=== PATIENT | female | born 1995 | race African-American/Black ===

== ENCOUNTER 2018-05-04 17:29 | Emergency (ER) | payer MEDICAID ==
[~2018-05-04] VITALS: Ht 162.6 cm; Wt 67.4 kg
[2018-05-04 17:34] VITALS: BP 122/87
== END 2018-05-04 18:02 | disposition home or self-care (01) ==
LOC: ED 17:45
DX: J03.90 Acute tonsillitis, unspecified (principal)
CPT/HCPCS: 51702; 99283

== ENCOUNTER 2019-09-12 05:05 | Emergency (ER) | payer SELFPAY ==
[~2019-09-12] VITALS: Ht 162.6 cm; Wt 60.9 kg
[2019-09-12] MEDS ORDERED: SODIUM CHLORIDE FLUSH 10ML SYR IVF ONE (05:30)
[2019-09-12] MEDS ORDERED: ONDANSETRON 2MG/ML, 2ML IVPush ONE (05:30)
[2019-09-12] MEDS ORDERED: FAMOTIDINE 20 MG/2 ML IV ONE (05:30)
[2019-09-12] MEDS ORDERED: MORPHINE SULFATE 4 MG/ML, 1ML IVPush PRN (05:30)
[2019-09-12] MEDS ORDERED: ONDANSETRON 2MG/ML, 2ML ONE (06:24)
[2019-09-12] MEDS ORDERED: MORPHINE SULFATE 4 MG/ML, 1ML ONE (06:24)
[2019-09-12] MEDS ORDERED: FAMOTIDINE 20 MG/2 ML ONE (06:25)
[2019-09-12 06:27] LABS: BASOPHILS # (AUTO) 0.03 x10^3/uL (0-0.1); BASOPHILS % (AUTO) 1 % (0-1); EOSINOPHILS # (AUTO) 0.09 x10^3/uL (0-0.4); EOSINOPHILS % (AUTO) 2 % (1-7); LYMPHOCYTES # (AUTO) 2.24 x10^3/uL (1-3.4); LYMPHOCYTES % (AUTO) 41 % (22-44); MD NO; MEAN CORPUSCULAR HEMOGLOBIN 29.8 pg (27.0-34.8); MEAN CORPUSCULAR HGB CONC 33.6 g/dL (32.4-35.8); MEAN CORPUSCULAR VOLUME 88.8 fL (80-100); MEAN PLATELET VOLUME 8.6 fL (7.4-10.4); MONOCYTES % (AUTO) 7 % (2-9); NEUTROPHILS # (AUTO) 2.68 x10^3/uL (1.8-6.8); NEUTROPHILS % (AUTO) 49 % (42-75); PLATELET COUNT 289 x10^3/uL (130-400); RED BLOOD COUNT 4.59 x10^6/uL (3.82-5.3)
[2019-09-12 06:38] LABS: ALANINE AMINOTRANSFERASE 29 U/L (12-78); ALBUMIN 3.4 g/dL (3.4-5.0); ANION GAP 6 mmol/L (5-15); CALCIUM 9.3 mg/dL (8.5-10.1); CHLORIDE 107 mmol/L (98-107); CREATININE 1.11 mg/dL (0.55-1.02)
[2019-09-12 06:42] LABS: ALKALINE PHOSPHATASE 64 U/L (45-117); BILIRUBIN,TOTAL 0.4 mg/dL (0.2-1.0); TOTAL PROTEIN 7.2 g/dL (6.4-8.2)
[2019-09-12 06:50] LABS: MICROSCOPIC AUTO
[2019-09-12 06:51] LABS: CULTURE INDICATED? YES
--- NOTE | 2019-09-12 07:08 | NUR ---
Received bedside report from MARTINEZ Gomez. All questions answered. Pt resting on gurney connected to monitors. No needs expressed at this time. Pt states pain is a dull pressure now and "not as painful as it was". Call light within reach. Bedrails up for pt safety and preferance at this time.
[2019-09-12] MEDS ORDERED: PANTOPRAZOLE 40 MG IV ONE (07:26)
[2019-09-12] MEDS ORDERED: PANTOPRAZOLE 40 MG IV IVPush SCH (07:30)
[2019-09-12 07:32] VITALS: BP 107/72
--- NOTE | 2019-09-12 07:49 | NUR ---
Patient given discharge instructions and they have confirmed that they understand the instructions. Patient ambulatory with steady gait. Pt left with d/c paperwork, Rx, and all personal belongings. Pt states, "I am feeling better, I am glad it wasn't anything worse." NADN. No needs expressed.
== END 2019-09-12 07:51 | disposition home or self-care (01) ==
LOC: ED 07:40
DX: R10.13 Epigastric pain (principal)
CPT/HCPCS: 36415; 71045; 76700; 80053; 81001; 83690; 84703; 85025; 87086; 93005; 96374; 96375; 99285; C9113; J2270; J2405; J3490

== ENCOUNTER 2019-12-15 23:54 | Emergency (ER) | payer SELFPAY ==
[~2019-12-15] VITALS: Ht 162.6 cm; Wt 62.6 kg
--- NOTE | 2019-12-16 00:22 | NUR ---
Patient presents to ER c/o stabbing pelvic pain with nausea since last . Radiates to back. More frequent BM. Patient has a hx of unspecified growth on right ovary. No vag discharge or bleeding. Patient took ibuprofen today for the pain. Patient is in NAD. Respirations even and unlabored.
[2019-12-16] MEDS ORDERED: SODIUM CHLORIDE FLUSH 10ML SYR IVF ONE (00:30)
[2019-12-16] MEDS ORDERED: MORPHINE SULFATE 4 MG/ML, 1ML IVPush PRN (00:30)
[2019-12-16] MEDS ORDERED: ONDANSETRON 2MG/ML, 2ML ONE (00:30)
[2019-12-16] MEDS ORDERED: ONDANSETRON 2MG/ML, 2ML IVPush ONE (00:30)
[2019-12-16] MEDS ORDERED: MORPHINE SULFATE 4 MG/ML, 1ML ONE (00:30)
[2019-12-16 00:40] LABS: MICROSCOPIC AUTO
[2019-12-16 00:52] LABS: BASOPHILS # (AUTO) 0.05 x10^3/uL (0-0.1); BASOPHILS % (AUTO) 1 % (0-1); EOSINOPHILS # (AUTO) 0.05 x10^3/uL (0-0.4); EOSINOPHILS % (AUTO) 1 % (1-7); LYMPHOCYTES # (AUTO) 2.83 x10^3/uL (1-3.4); LYMPHOCYTES % (AUTO) 32 % (22-44); MD NO; MEAN CORPUSCULAR HEMOGLOBIN 29.9 pg (27.0-34.8); MEAN CORPUSCULAR HGB CONC 33.6 g/dL (32.4-35.8); MEAN CORPUSCULAR VOLUME 88.8 fL (80-100); MEAN PLATELET VOLUME 9.3 fL (7.4-10.4); MONOCYTES # (AUTO) 0.51 x10^3/uL (0.2-0.8); MONOCYTES % (AUTO) 6 % (2-9); NEUTROPHILS # (AUTO) 5.38 x10^3/uL (1.8-6.8); NEUTROPHILS % (AUTO) 61 % (42-75); PLATELET COUNT 298 x10^3/uL (130-400); RED BLOOD COUNT 5.09 x10^6/uL (3.82-5.3); RED CELL DISTRIBUTION WIDTH 13.6 % (9.6-15.2)
[2019-12-16 01:02] LABS: ALBUMIN 3.9 g/dL (3.4-5.0); ANION GAP 6 mmol/L (5-15); CALCIUM 8.8 mg/dL (8.5-10.1); CHLORIDE 107 mmol/L (98-107); CREATININE 1.24 mg/dL (0.55-1.02)
--- NOTE | 2019-12-16 01:34 | NUR ---
TASK RN: RN PRESENT FOR TANSVAGINAL US. PT TOLERATED WELL. CONTINUES TO REPORT MILD NAUSEA BUT IMPROVED PAIN AFER RX.
[2019-12-16 02:00] VITALS: BP 106/71
--- NOTE | 2019-12-16 02:09 | NUR ---
Patient reports decreased pain and nausea.
--- NOTE | 2019-12-16 02:53 | NUR ---
CT ordered after US result. Patient states she does not want the CT done. Patient wants to go home and get a copy of the US result.
== END 2019-12-16 00:59 | disposition home or self-care (01) ==
LOC: ED 12-16 00:58
DX: R10.32 Left lower quadrant pain (principal); R10.31 Right lower quadrant pain; R11.2 Nausea with vomiting, unspecified; R94.31 Abnormal electrocardiogram [ECG] [EKG]
CPT/HCPCS: 36415; 76830; 80048; 81001; 82040; 84703; 85025; 87086; 93005; 96374; 96375; 99285; J2270; J2405

== ENCOUNTER 2020-06-05 16:56 | Emergency (ER) | payer OTHER ==
[~2020-06-05] VITALS: Ht 162.6 cm; Wt 66.5 kg
--- NOTE | 2020-06-05 20:08 | NUR ---
pt to room from lobby
[2020-06-05 21:06] LABS: ALANINE AMINOTRANSFERASE 17 U/L (12-78); ALBUMIN 3.4 g/dL (3.4-5.0); ANION GAP 5 mmol/L (5-15); CALCIUM 8.1 mg/dL (8.5-10.1); CHLORIDE 110 mmol/L (98-107); CREATININE 0.93 mg/dL (0.55-1.02)
[2020-06-05 21:09] LABS: BASOPHILS % (AUTO) 1 % (0-1); EOSINOPHILS % (AUTO) 1 % (1-7); LYMPHOCYTES % (AUTO) 40 % (22-44); MEAN CORPUSCULAR HGB CONC 34.2 g/dL (32.4-35.8); MONOCYTES % (AUTO) 6 % (2-9); NEUTROPHILS % (AUTO) 53 % (42-75); PLATELET COUNT 298 x10^3/uL (130-400); RED BLOOD COUNT 4.38 x10^6/uL (3.82-5.3)
[2020-06-05 21:10] LABS: ALKALINE PHOSPHATASE 63 U/L (45-117); BILIRUBIN,TOTAL 0.5 mg/dL (0.2-1.0)
[2020-06-05 21:21] LABS: MD NO
[2020-06-05 22:02] VITALS: BP 107/75
== END 2020-06-05 22:10 | disposition home or self-care (01) ==
LOC: ED 21:18
DX: B34.9 Viral infection, unspecified (principal); Z20.828 Contact with and (suspected) exposure to other viral communicable diseases; R53.83 Other fatigue; R42 Dizziness and giddiness; R05 Cough; R07.9 Chest pain, unspecified; I49.1 Atrial premature depolarization
CPT/HCPCS: 71045; 80053; 84703; 85025; 87635; 93005; 99285

== ENCOUNTER 2020-08-15 17:35 | Emergency (ER) | payer OTHER ==
[~2020-08-15] VITALS: Ht 165.1 cm; Wt 66.5 kg
[2020-08-15 18:13] LABS: MICROSCOPIC AUTO
--- NOTE | 2020-08-15 18:29 | NUR ---
PT AMBULATED TO THE ROOM W/ A STEADY GAIT AT THIS TIME.
--- NOTE | 2020-08-15 18:36 | NUR ---
THIS IS A 25 YO F W/ C/O EPIGASTRIC ABD PAIN X2 WEEKS, WORSE W/ FOOD AND MEDS. PT REPORTS NO RELIEF FROM ZOFRAN OR OMEPRAZOLE. PT REPORTS RECENT US DONE AT THAT WAS NEGATIVE. PT REPORTS HAS BEEN TRYING CLEAR LIQUID DIET AND AVOIDING SPICY/GREASY FOODS W/ NO RELIEF. PT RESTING ON GUREY W/ CALL LIGHT IN REACH AND SIDE RAILS UPX2. RESP EVEN AND UNLABORED, PIYUSH. AWAITING ED EVAL.
--- NOTE | 2020-08-15 18:58 | NUR ---
REPORT GIVEN TO CHAPO HENRIQUEZ. PT RESTING ON GURNEY W/ CALL LIGHT IN REACH AND SIDE RAILS UPX2.RESP EVEN AND UNLABORED, SEVENN. AWAITING ORDERS.
[2020-08-15] MEDS ORDERED: FAMOTIDINE 20 MG TABLET ONE (19:11)
[2020-08-15] MEDS ORDERED: MAALOX/HYOSCYAMINE/LIDOCAINE 45 ML BTL ONE (19:11)
[2020-08-15] MEDS ORDERED: METOCLOPRAMIDE 10MG TABLET ONE (19:11)
--- NOTE | 2020-08-15 19:24 | NUR ---
RECEIVED REPORT FROM MARTINEZ ERVIN. PT RESTING ON [employer]. ATTEMPTED TO GIVE PO MEDS. PT TOOK MEDS AND STARTED DRY HEAVING AND THREW UP. GERMAN RAHMAN NOTIFIED.
[2020-08-15 19:29] LABS: BASOPHILS % (AUTO) 1 % (0-1); EOSINOPHILS % (AUTO) 2 % (1-7); LYMPHOCYTES % (AUTO) 39 % (22-44); MEAN CORPUSCULAR HEMOGLOBIN 30.6 pg (27.0-34.8); MEAN CORPUSCULAR HGB CONC 34.2 g/dL (32.4-35.8); MEAN PLATELET VOLUME 8.6 fL (7.4-10.4); MONOCYTES % (AUTO) 6 % (2-9); NEUTROPHILS % (AUTO) 53 % (42-75); PLATELET COUNT 293 x10^3/uL (130-400); RED BLOOD COUNT 4.14 x10^6/uL (3.82-5.3); RED CELL DISTRIBUTION WIDTH 13.5 % (9.6-15.2)
[2020-08-15 19:30] LABS: MD NO
[2020-08-15] MEDS ORDERED: FAMOTIDINE 20 MG/2 ML IV ONE (19:30)
[2020-08-15] MEDS ORDERED: SODIUM CHLORIDE FLUSH 10ML SYR IVF ONE (19:30)
[2020-08-15] MEDS ORDERED: MAALOX/HYOSCYAMINE/LIDOCAINE 45 ML BTL PO ONE (19:30)
[2020-08-15] MEDS ORDERED: METOCLOPRAMIDE 10MG TABLET PO ONE (19:30)
[2020-08-15] MEDS ORDERED: FAMOTIDINE 20 MG TABLET PO ONE (19:30)
[2020-08-15] MEDS ORDERED: METOCLOPRAMIDE 5 MG/ML, 2ML IVPush ONE (19:30)
[2020-08-15] MEDS ORDERED: SODIUM CHLORIDE 0.9% 1,000ML IVBOLUS ONE (19:30)
[2020-08-15 19:34] LABS: CALCIUM 8.2 mg/dL (8.5-10.1); CHLORIDE 110 mmol/L (98-107)
[2020-08-15] MEDS ORDERED: FAMOTIDINE 20 MG/2 ML ONE (19:36)
[2020-08-15] MEDS ORDERED: METOCLOPRAMIDE 5 MG/ML, 2ML ONE (19:36)
[2020-08-15 19:43] LABS: ALANINE AMINOTRANSFERASE 20 U/L (12-78); ALBUMIN 3.4 g/dL (3.4-5.0); ALKALINE PHOSPHATASE 54 U/L (45-117); ANION GAP 7 mmol/L (5-15); BILIRUBIN,TOTAL 0.3 mg/dL (0.2-1.0); CREATININE 1.02 mg/dL (0.55-1.02); TOTAL PROTEIN 7.1 g/dL (6.4-8.2)
--- NOTE | 2020-08-15 20:29 | NUR ---
PT RESTING ON [facility]. PIYUSH. VSS. PT STATES SHE FEELS IMPROVED. PT TOLERATED PO FLUIDS. PLACED FOR RECHECK.
--- NOTE | 2020-08-15 20:57 | NUR ---
REPORT GIVEN TO MARTINEZ BUCKLEY.
[2020-08-15 22:08] VITALS: BP 101/58
--- NOTE | 2020-08-15 22:08 | NUR ---
Patient given discharge instructions and they have confirmed that they understand the instructions. Patient ambulatory with steady gait.
== END 2020-08-15 22:10 | disposition home or self-care (01) ==
LOC: ED 18:42
DX: R10.13 Epigastric pain (principal); R11.2 Nausea with vomiting, unspecified
CPT/HCPCS: 36415; 80053; 81001; 83690; 84703; 85025; 87086; 96361; 96374; 96375; 99285; J2765; J7030; 87077

== ENCOUNTER 2021-01-29 23:22 | Emergency (ER) | payer MEDICAID, OTHER ==
[~2021-01-29] VITALS: Ht 162.6 cm; Wt 63.9 kg
[2021-01-29 23:49] LABS: MICROSCOPIC AUTO
[2021-01-30] VITALS: BP 107/70
--- NOTE | 2021-01-30 00:04 | NUR ---
pt presents to the ed with complains of chest pain, cough, and nausea. pt states she just doesn't feel well. pt already provided ua sample and it was sent to lab and pt was covid test. pt received first dose of covid vaccine on 01/17/21. pt in gown, resting on gurney and placed on continuous monitoring.
--- NOTE | 2021-01-30 01:08 | NUR ---
pt resting on gurney, denies needs at this time.
[2021-01-30] MEDS ORDERED: PHENAZOPYRIDINE 200 MG TABLET ONE (02:06)
[2021-01-30] MEDS ORDERED: KETOROLAC 30 MG/1 ML ONE (02:06)
--- NOTE | 2021-01-30 02:20 | NUR ---
Patient given discharge instructions and they have confirmed that they understand the instructions. Patient ambulatory with steady gait.
[2021-01-30] MEDS ORDERED: PHENAZOPYRIDINE 200 MG TABLET PO ONE (02:30)
[2021-01-30] MEDS ORDERED: KETOROLAC 30 MG/1 ML IM ONE (02:30)
== END 2021-01-30 02:23 | disposition home or self-care (01) ==
LOC: ED 23:52
DX: N30.00 Acute cystitis without hematuria (principal); Z20.822 Contact with and (suspected) exposure to COVID-19
CPT/HCPCS: 71045; 81001; 87086; 93005; 96372; 99285; J1885; U0003; U0005